=== PATIENT | male | born 1935 | race Caucasian/White ===

== ENCOUNTER 2016-09-24 09:17 | Inpatient (IN) | payer MEDICARE ==
[~2016-09-24 09:17] MED LIST: ALBUTEROL2.5 MG/3 M INH; COUMADIN1 M1 PO; COUMADIN2 M1 PO; FLOMAX0.4 M1 PO; LIPITOR20 M1 PO; LOSARTAN-HCTZ1 EAC5 PO; LOVENOX80 MG/0.8; MULTIVITAMIN1 TAB; OMEGA 31 CAP; PRILOSEC20 MG; PROPOXY-N-APAP1 TAB; PROVENTIL HFA6.7 G1 INH; SPIRIVA18 MC1 INH; SYMBICORT 160-1 PUFF INH; TENORMIN25 M1 PO
[2016-09-24] MEDS ORDERED: SYNTHROID50 MC1 PO (10:46)
[2016-09-24] MEDS ORDERED: LASIX40 M1 PO (10:47)
[2016-09-24] MEDS ORDERED: LOPERAMIDE1 MG/5 M3 PO (10:48)
[2016-09-24] MEDS ORDERED: CALCIUM CITRAT1 EA25 PO (10:51)
[2016-09-24] MEDS ORDERED: PREDNISONE10 M1 PO (10:52)
[2016-09-24 11:56] LABS: BASO % 0.1 % (0-2); EOS % 0.3 % (0-7); HCT-HEMATOCRIT 25.2 % (36.0-53.5); IMMATURE GRANULOCYTES ABSOLUTE 0.04 tho/cmm (0-0.03); IMMATURE GRANULOCYTES PERCENT 0.4 % (0-0.3); LYMPH % 1.8 % (20-45); LYMPH ABSOLUTE COUNT 0.2 tho/cmm (0.8-4.5); MCH (MEAN CORPUSCULAR HGB) 29.2 pg (28.0-32.0); MCHC MEAN CORPUSCULAR HGB CONC 31.7 % (32.0-36.0); MEAN PLATELET VOLUME 10.5 cmc (9.4-12.4); MONO % 2.5 % (0-12); MONOCYTE ABSOLUTE COUNT 0.2 tho/cmm (0.0-1.2); NEUTROPHIL ABSOLUTE COUNT 9.1 tho/cmm (1.6-8.0); NEUTROPHIL-AUTOMATED 9.1 tho/cmm (1.6-8.0); NEUTROPHILS % 94.9 % (40-80); PLATELET COUNT 158 tho/cmm (150-450); RED BLOOD COUNT 2.74 mil/cmm (4.40-5.70); RED CELL DISTRIBUTION WIDTH 14.8 % (12.4-16.4); WHITE BLOOD COUNT 9.6 tho/cmm (4.0-10.0)
[2016-09-24 12:00] LABS: PROTHROMBIN TIME 11.6 SECONDS (9.0-13.6)
[2016-09-24 12:06] LABS: ANION GAP 18 mmol/L (0-20); BLOOD UREA NITROGEN 119 mg/dl (6-24); CALCIUM 7.2 mg/dl (8.5-10.5); CARBON DIOXIDE-VENOUS 25 mmol/L (22-32); CHLORIDE 109 mmol/l (96-110); CREATININE 5.14 mg/dl (0.60-1.30); GLUCOSE 110 mg/dL (70-110); POTASSIUM 3.5 mmol/L (3.7-5.1); SODIUM 148 mmol/L (135-145); eGFR VALUE FOR BLACK 11 mL/Min
[2016-09-24 17:25] LABS: TSH-THYROID STIMULATING HORM. 2.06 uIU/ml (0.40-3.80)
[2016-09-25 05:37] LABS: BASO % 0.1 % (0-2); EOS % 1.5 % (0-7); EOSINOPHIL ABSOLUTE COUNT 0.1 tho/cmm (0.0-0.7); HGB-HEMOGLOBIN 7.2 gm/dl (13.5-17.0); IMMATURE GRANULOCYTES ABSOLUTE 0.05 tho/cmm (0-0.03); IMMATURE GRANULOCYTES PERCENT 0.6 % (0-0.3); LYMPH % 4.4 % (20-45); LYMPH ABSOLUTE COUNT 0.4 tho/cmm (0.8-4.5); MCH (MEAN CORPUSCULAR HGB) 29.3 pg (28.0-32.0); MCHC MEAN CORPUSCULAR HGB CONC 31.4 % (32.0-36.0); MCV (MEAN CELL VOLUME) 93.1 fl (82.0-96.0); MEAN PLATELET VOLUME 9.6 cmc (9.4-12.4); MONO % 7.9 % (0-12); MONOCYTE ABSOLUTE COUNT 0.7 tho/cmm (0.0-1.2); NEUTROPHIL ABSOLUTE COUNT 7.8 tho/cmm (1.6-8.0); NEUTROPHIL-AUTOMATED 7.8 tho/cmm (1.6-8.0); NEUTROPHILS % 85.5 % (40-80); PLATELET COUNT 136 tho/cmm (150-450); RED BLOOD COUNT 2.46 mil/cmm (4.40-5.70); RED CELL DISTRIBUTION WIDTH 14.8 % (12.4-16.4); WHITE BLOOD COUNT 9.1 tho/cmm (4.0-10.0)
[2016-09-25 05:46] LABS: HCT-HEMATOCRIT 22.9 % (36.0-53.5)
[2016-09-25 05:49] LABS: ALBUMIN 2.5 g/dl (3.5-5.0); ANION GAP 16 mmol/L (0-20); BLOOD UREA NITROGEN 120 mg/dl (6-24); CALCIUM 6.8 mg/dl (8.5-10.5); CARBON DIOXIDE-VENOUS 27 mmol/L (22-32); CHLORIDE 115 mmol/l (96-110); CREATININE 4.79 mg/dl (0.60-1.30); GLUCOSE 86 mg/dL (70-110); PHOSPHOROUS 5.5 mg/dl (2.5-4.9); POTASSIUM 3.5 mmol/L (3.7-5.1); SODIUM 154 mmol/L (135-145); eGFR VALUE FOR BLACK 12 mL/Min
[2016-09-25] MEDS ORDERED: OMEPRAZOLE20 M3 PO (14:06)
[2016-09-25] MEDS ORDERED: LOMOTIL 2.5-0.1 EACH PO (14:16)
[2016-09-25] MEDS ORDERED: IPRAT-ALBUT 0.5-3 ML INH (14:17)
[2016-09-25] MEDS ORDERED: LUPRON DEPOT3.75 MG (14:18)
--- NOTE | 2016-09-25 20:59 | NUR ---
VIRTUAL CARE NOTE: ASSESSMENT DEFERRED. PT. SLEEPING.
[2016-09-26 06:46] LABS: CALCIUM 7.2 mg/dl (8.5-10.5); CARBON DIOXIDE-VENOUS 26 mmol/L (22-32); CHLORIDE 110 mmol/l (96-110); GLUCOSE 84 mg/dL (70-110); MAGNESIUM 1.5 mg/dl (1.8-2.6); PHOSPHOROUS 3.4 mg/dl (2.5-4.9); POTASSIUM 3.4 mmol/L (3.7-5.1); eGFR VALUE FOR BLACK 20 mL/Min
[2016-09-26 07:09] LABS: ANION GAP 13 mmol/L (0-20); BLOOD UREA NITROGEN 55 mg/dl (6-24); CREATININE 3.16 mg/dl (0.60-1.30); SODIUM 146 mmol/L (135-145)
--- NOTE | 2016-09-26 07:30 | NUR ---
VIRTUAL CARE NOTE: ROUND AT BEDSIDE, HELPING FLOOR NURSE WITH GREEN SHEET AND CONSENT SIGN FOR SCOPES TODAY. PRE-PROCEDURE INFORMATION GIVEN TO PT AND FAMILY. PT AND FAMILY DENIES CONCERNS OR QUESTONS.
[2016-09-26 17:01] LABS: HCT-HEMATOCRIT 28.6 % (36.0-53.5); MCV (MEAN CELL VOLUME) 93.2 fl (82.0-96.0); RED CELL DISTRIBUTION WIDTH 15.5 % (12.4-16.4)
[2016-09-27 05:32] LABS: BASO % 0.1 % (0-2); EOS % 0.4 % (0-7); EOSINOPHIL ABSOLUTE COUNT 0.1 tho/cmm (0.0-0.7); HGB-HEMOGLOBIN 7.1 gm/dl (13.5-17.0); IMMATURE GRANULOCYTES ABSOLUTE 0.06 tho/cmm (0-0.03); IMMATURE GRANULOCYTES PERCENT 0.4 % (0-0.3); LYMPH % 3.4 % (20-45); LYMPH ABSOLUTE COUNT 0.5 tho/cmm (0.8-4.5); MCH (MEAN CORPUSCULAR HGB) 29.8 pg (28.0-32.0); MCV (MEAN CELL VOLUME) 92.9 fl (82.0-96.0); MEAN PLATELET VOLUME 9.9 cmc (9.4-12.4); MONO % 4.5 % (0-12); MONOCYTE ABSOLUTE COUNT 0.6 tho/cmm (0.0-1.2); NEUTROPHIL ABSOLUTE COUNT 12.9 tho/cmm (1.6-8.0); NEUTROPHIL-AUTOMATED 12.9 tho/cmm (1.6-8.0); NEUTROPHILS % 91.2 % (40-80); PLATELET COUNT 128 tho/cmm (150-450); RED BLOOD COUNT 2.38 mil/cmm (4.40-5.70); RED CELL DISTRIBUTION WIDTH 15.6 % (12.4-16.4)
[2016-09-27 05:35] LABS: HCT-HEMATOCRIT 22.1 % (36.0-53.5); MCHC MEAN CORPUSCULAR HGB CONC 32.1 % (32.0-36.0); WHITE BLOOD COUNT 14.1 tho/cmm (4.0-10.0)
[2016-09-27 05:43] LABS: ALBUMIN 2.4 g/dl (3.5-5.0); ANION GAP 15 mmol/L (0-20); BLOOD UREA NITROGEN 29 mg/dl (6-24); CALCIUM 7.1 mg/dl (8.5-10.5); CARBON DIOXIDE-VENOUS 25 mmol/L (22-32); CHLORIDE 105 mmol/l (96-110); CREATININE 3.08 mg/dl (0.60-1.30); GLUCOSE 103 mg/dL (70-110); PHOSPHOROUS 3.9 mg/dl (2.5-4.9); POTASSIUM 3.8 mmol/L (3.7-5.1); SODIUM 141 mmol/L (135-145); eGFR VALUE FOR BLACK 21 mL/Min
--- NOTE | 2016-09-27 20:17 | NUR ---
VN/LEADER ROUNDING-VISITED WITH PATIENT HE LAY IN BED COMFORTABLE WITH MIN DISCOMFORT AND SAID A TYLENOL MIGHT HELP. I AM PAGING THE NURSE. I EXPLAINED TO PATIENT THAT HE IS GOING TO HAVE A LACTOSE TOLERANCE TEST AND THAT HE CANNOT HAVE ANYTHING TO EAT OR DRINK AFTER MIDNIGHT. HE VERBALIZED UNDERSTANDING. PATIENT HAD NO CONCERNS AND SAID EVERYTHING IS GOOD FAR THE LEADER ROUNDING.
[2016-09-28 05:11] LABS: BASO % 0.2 % (0-2); EOS % 1.2 % (0-7); EOSINOPHIL ABSOLUTE COUNT 0.2 tho/cmm (0.0-0.7); HGB-HEMOGLOBIN 6.5 gm/dl (13.5-17.0); LYMPH % 3.7 % (20-45); LYMPH ABSOLUTE COUNT 0.5 tho/cmm (0.8-4.5); MCH (MEAN CORPUSCULAR HGB) 30.4 pg (28.0-32.0); MCV (MEAN CELL VOLUME) 95.8 fl (82.0-96.0); MEAN PLATELET VOLUME 11.4 cmc (9.4-12.4); MONO % 6.3 % (0-12); MONOCYTE ABSOLUTE COUNT 0.8 tho/cmm (0.0-1.2); NEUTROPHIL ABSOLUTE COUNT 11.5 tho/cmm (1.6-8.0); NEUTROPHIL-AUTOMATED 11.5 tho/cmm (1.6-8.0); NEUTROPHILS % 88.6 % (40-80); PLATELET COUNT 78 tho/cmm (150-450); RED BLOOD COUNT 2.14 mil/cmm (4.40-5.70); RED CELL DISTRIBUTION WIDTH 15.4 % (12.4-16.4)
[2016-09-28 05:47] LABS: BLOOD UREA NITROGEN 28 mg/dl (6-24); CALCIUM 6.7 mg/dl (8.5-10.5); CARBON DIOXIDE-VENOUS 21 mmol/L (22-32); CHLORIDE 106 mmol/l (96-110); CREATININE 2.81 mg/dl (0.60-1.30); GLUCOSE 130 mg/dL (70-110); SODIUM 138 mmol/L (135-145); eGFR VALUE FOR BLACK 23 mL/Min
[2016-09-28 05:48] LABS: ANION GAP 15 mmol/L (0-20); MAGNESIUM 1.5 mg/dl (1.8-2.6); POTASSIUM 3.5 mmol/L (3.7-5.1)
[2016-09-28 06:26] LABS: HCT-HEMATOCRIT 20.5 % (36.0-53.5); MCHC MEAN CORPUSCULAR HGB CONC 31.7 % (32.0-36.0)
--- NOTE | 2016-09-28 19:38 | NUR ---
VN/LEADER ROUNDING-PATIENT LAYING IN BED AND FEELING BETTER TODAY. HE GOT SOME BLOOD AND MAG BY IV. DENIES PAIN EXCEPT THE HEMOCATH HURTS SOMETIMES WHEN HE TOUCHES IT AND HE LEFT ARM A LITTLE SORE WHEN I ASKED HIM ABOUT IT. WE ALSO DISCUSSED PLANS FOR HIM TO GET DIALYSIS TOMMORROW AND WILL GET ANOTHER UNIT OF BLOOD. ALSO DISCUSSED THE LACTOSE TEST OUTPT. NO OTHER CONCERNS AT THIS TIME. CHART REVIEWED.
[2016-09-29 05:24] LABS: HGB-HEMOGLOBIN 8.2 gm/dl (13.5-17.0)
[2016-09-29 05:25] LABS: IRON 31 ug/dl (49-181); IRON BINDING CAPACITY 126 ug/dl (250-450)
[2016-09-29 05:30] LABS: ANION GAP 16 mmol/L (0-20); CALCIUM 7.5 mg/dl (8.5-10.5); CARBON DIOXIDE-VENOUS 25 mmol/L (22-32); CHLORIDE 106 mmol/l (96-110); FERRITIN 225 ng/ml (22-388); GLUCOSE 93 mg/dL (70-110); POTASSIUM 3.5 mmol/L (3.7-5.1); SODIUM 143 mmol/L (135-145)
[2016-09-29 05:34] LABS: BLOOD UREA NITROGEN 48 mg/dl (6-24); CREATININE 3.68 mg/dl (0.60-1.30); MAGNESIUM 2.7 mg/dl (1.8-2.6); eGFR VALUE FOR BLACK 17 mL/Min
--- NOTE | 2016-09-29 22:00 | NUR ---
VIRTUAL CARE NOTE: ASSESSMENT DEFERRED. PT. SLEEPING.
--- NOTE | 2016-09-30 21:47 | NUR ---
VIRTUAL CARE NOTE: ASSESSMENT DEFERRED. PT. SLEEPING.
[2016-10-01 05:07] LABS: BASO % 0.2 % (0-2); EOS % 0.7 % (0-7); EOSINOPHIL ABSOLUTE COUNT 0.1 tho/cmm (0.0-0.7); HCT-HEMATOCRIT 27.9 % (36.0-53.5); HGB-HEMOGLOBIN 8.9 gm/dl (13.5-17.0); IMMATURE GRANULOCYTES ABSOLUTE 0.14 tho/cmm (0-0.03); IMMATURE GRANULOCYTES PERCENT 1.2 % (0-0.3); LYMPH % 5.3 % (20-45); LYMPH ABSOLUTE COUNT 0.7 tho/cmm (0.8-4.5); MCH (MEAN CORPUSCULAR HGB) 29.1 pg (28.0-32.0); MCHC MEAN CORPUSCULAR HGB CONC 31.9 % (32.0-36.0); MCV (MEAN CELL VOLUME) 91.2 fl (82.0-96.0); MEAN PLATELET VOLUME 9.6 cmc (9.4-12.4); MONOCYTE ABSOLUTE COUNT 0.6 tho/cmm (0.0-1.2); NEUTROPHIL ABSOLUTE COUNT 10.7 tho/cmm (1.6-8.0); NEUTROPHIL-AUTOMATED 10.7 tho/cmm (1.6-8.0); NEUTROPHILS % 87.6 % (40-80); PLATELET COUNT 137 tho/cmm (150-450); RED BLOOD COUNT 3.06 mil/cmm (4.40-5.70); RED CELL DISTRIBUTION WIDTH 15.4 % (12.4-16.4); WHITE BLOOD COUNT 12.2 tho/cmm (4.0-10.0)
[2016-10-01 05:18] LABS: ALBUMIN 2.1 g/dl (3.5-5.0); ANION GAP 16 mmol/L (0-20); BLOOD UREA NITROGEN 57 mg/dl (6-24); CALCIUM 7.4 mg/dl (8.5-10.5); CARBON DIOXIDE-VENOUS 26 mmol/L (22-32); CHLORIDE 104 mmol/l (96-110); CREATININE 3.35 mg/dl (0.60-1.30); GLUCOSE 93 mg/dL (70-110); PHOSPHOROUS 3.1 mg/dl (2.5-4.9); POTASSIUM 4.2 mmol/L (3.7-5.1); SODIUM 142 mmol/L (135-145); eGFR VALUE FOR BLACK 19 mL/Min
--- NOTE | 2016-10-01 16:09 | NUR ---
VIRTUAL CARE NOTE: CHECKED IN W PT AT THIS TIME. HE IS SITTING UP IN BED. IS REQUESTING SOME ASSISTANCE WITH REWRAPPING THE BANDAGE ON HIS ARM. PAGED NURSING STAFF FOR THEM TO COME HELP PT WHEN THEY CAN. PT IS IN GOOD SPIRITS. STATES HE HAD HD RUN TODAY AND THAT IT WENT WELL. NO DIZZINESS. HAS NO FURTHER NEEDS OR QUESTIONS AT THIS TIME. WILL CONTINUE TO MONITOR. ELECTRONIC CHART REVIEWED.
--- NOTE | 2016-10-03 20:24 | NUR ---
VIRTUAL CARE NOTE: PT IN BED, SLIGHTLY HARD OF HEARING, FAMILY ALSO IN THE ROOM. STATES IS DOING OKAY. O2 ON UNABLE TO VIEW AMOUNT. PT. AND STATES HE'S USUALLY ON 2 1/2 LITERS AT HOME IS ON 2L HERE. THEY ALSO STATE THAT HE'S WALKED TO THE DOORWAY AND BACK. PT. ENCOURAGED WHEN STAFF IS ABLE TO WALK AGAIN TONIGHT WITH HELP ONCE MORE. EDUCATION REVIEWED TO CALL THE STAFF AND WAIT FOR THEIR ARRIVAL TO GET UP SO HE DOESN'T GET INJURED. PT. AND STATE VERBAL UNDERSTANDING. EXPLAINS THEY ARE AWAITING [facility] DIALYSIS TRANSPORT FOR DISCHARGE NEEDS. EXPLANATION GIVEN THAT THIS NURSE WAS GLAD THEY FOUND A PLACE FOR DIALYSIS NOW WE NEED THE NEXT STEP TO [facility] AND OUR STAFF WILL CONTINUE TO WORK WITH THEM. INSTRUCTED TO CALL FOR FURTHER NEEDS. PT. AND VOICE VERBAL UNDERSTANDING.
[2016-10-03 23:11] LABS: PROTHROMBIN TIME 11.1 SECONDS (9.0-13.6)
[2016-10-04 06:23] LABS: BASO % 0.1 % (0-2); EOS % 0.7 % (0-7); EOSINOPHIL ABSOLUTE COUNT 0.1 tho/cmm (0.0-0.7); HCT-HEMATOCRIT 31.4 % (36.0-53.5); HGB-HEMOGLOBIN 9.9 gm/dl (13.5-17.0); IMMATURE GRANULOCYTES ABSOLUTE 0.22 tho/cmm (0-0.03); IMMATURE GRANULOCYTES PERCENT 1.9 % (0-0.3); LYMPH ABSOLUTE COUNT 0.7 tho/cmm (0.8-4.5); MCH (MEAN CORPUSCULAR HGB) 29.8 pg (28.0-32.0); MCHC MEAN CORPUSCULAR HGB CONC 31.5 % (32.0-36.0); MCV (MEAN CELL VOLUME) 94.6 fl (82.0-96.0); MEAN PLATELET VOLUME 10.3 cmc (9.4-12.4); MONO % 7.3 % (0-12); MONOCYTE ABSOLUTE COUNT 0.9 tho/cmm (0.0-1.2); PLATELET COUNT 162 tho/cmm (150-450); RED BLOOD COUNT 3.32 mil/cmm (4.40-5.70); RED CELL DISTRIBUTION WIDTH 16.1 % (12.4-16.4); WHITE BLOOD COUNT 11.8 tho/cmm (4.0-10.0)
[2016-10-04 06:28] LABS: PROTHROMBIN TIME 11.1 SECONDS (9.0-13.6)
[2016-10-04 06:36] LABS: ANION GAP 14 mmol/L (0-20); BLOOD UREA NITROGEN 56 mg/dl (6-24); CALCIUM 7.9 mg/dl (8.5-10.5); CARBON DIOXIDE-VENOUS 27 mmol/L (22-32); CHLORIDE 107 mmol/l (96-110); CREATININE 2.44 mg/dl (0.60-1.30); GLUCOSE 94 mg/dL (70-110); MAGNESIUM 1.8 mg/dl (1.8-2.6); PHOSPHOROUS 2.9 mg/dl (2.5-4.9); POTASSIUM 4.6 mmol/L (3.7-5.1); SODIUM 143 mmol/L (135-145); eGFR VALUE FOR BLACK 28 mL/Min
--- NOTE | 2016-10-04 20:29 | NUR ---
VIRTUAL CARE NOTE: REVIEWED PLAN OF CARE WITH PT. PT STATES DOING WELL. DIALYSIS MAKES HIM TIRED BUT STATES [facility] DECREASED IT FROM 4 HOURS TO 3 AND THAT HAS HELPED. HE IS READY TO GO TO THE FACILITY TOMORROW AND CONTINUE WITH DIALYSIS PLANNED. DENIES ANY QUESTIONS OR CONCERNS AT THIS TIME. ENCOURAGED TO NOTIFY STAFF WITH NEEDS, ENCOURAGED FALL PRECAUTIONS. PT V/U. PHONE RANG AND PT COULD NOT REACH IT, ASKED STAFF TO COME IN AND MOVE IT CLOSER. WILL CONTINUE WITH CHART REVIEW.
--- NOTE | 2016-10-05 10:19 | NUR ---
VIRTUAL CARE NOTE: PT RESTING ON BED, AND DAUGHTER AT BEDISDE. DISCHARGE PLAN DISCUSSED, PT AND FAMILY AGREE TO DISMISS TO [facility] TODAY. PER [facility] WILL TAKE PT AT 2PM. FAMILY AND PT WERE INFORMED OF THE TIME.
== END 2016-10-05 13:50 | DRG 673 ==
LOC: SHSA 09:17 → 5WD 15:29
PROVIDERS: Internal Medicine; Internal Medicine Nephrology; Radiology Diagnostic Radiology; Specialist; ADMIT Internal Medicine Nephrology
PROC: 0JH63XZ Insertion of Tunneled Vascular Access Device into Chest Subcutaneous Tissue and Fascia, Percutaneous Approach (ICD-10-PCS; principal; 2016-09-24)
PROC: 02H633Z Insertion of Infusion Device into Right Atrium, Percutaneous Approach (ICD-10-PCS; 2016-09-24)
PROC: B214YZZ Fluoroscopy of Right Heart using Other Contrast (ICD-10-PCS; 2016-09-24)
PROC: 5A1D60Z (ICD-10-PCS; 2016-09-25)
PROC: 0DB98ZX Excision of Duodenum, Via Natural or Artificial Opening Endoscopic, Diagnostic (ICD-10-PCS; 2016-09-26)
PROC: 0DBE8ZX Excision of Large Intestine, Via Natural or Artificial Opening Endoscopic, Diagnostic (ICD-10-PCS; 2016-09-26)
PROC: 0DBK8ZZ Excision of Ascending Colon, Via Natural or Artificial Opening Endoscopic (ICD-10-PCS; 2016-09-26)
PROC: 30233N1 Transfusion of Nonautologous Red Blood Cells into Peripheral Vein, Percutaneous Approach (ICD-10-PCS; 2016-09-28)
DX: I12.0 Hypertensive chronic kidney disease with stage 5 chronic kidney disease or end stage renal disease (principal); E43 Unspecified severe protein-calorie malnutrition; N17.9 Acute kidney failure, unspecified; E87.0 Hyperosmolality and hypernatremia; N18.6 End stage renal disease; D69.6 Thrombocytopenia, unspecified; I95.9 Hypotension, unspecified; Z68.1 Body mass index [BMI] 19.9 or less, adult; Z99.81 Dependence on supplemental oxygen; J44.9 Chronic obstructive pulmonary disease, unspecified; D63.1 Anemia in chronic kidney disease; E03.9 Hypothyroidism, unspecified; K52.9 Noninfective gastroenteritis and colitis, unspecified; D12.2 Benign neoplasm of ascending colon; K57.30 Diverticulosis of large intestine without perforation or abscess without bleeding; R15.2 Fecal urgency; Z85.828 Personal history of other malignant neoplasm of skin; Z85.46 Personal history of malignant neoplasm of prostate; Z92.3 Personal history of irradiation; Z88.0 Allergy status to penicillin; Z87.891 Personal history of nicotine dependence; Z96.641 Presence of right artificial hip joint; Z99.2 Dependence on renal dialysis; E87.6 Hypokalemia; E83.42 Hypomagnesemia; Z86.718 Personal history of other venous thrombosis and embolism; Z79.01 Long term (current) use of anticoagulants
CPT/HCPCS: C1750; C1769; J0885; J1644; J1940; J2150; J2250; J3010; J3475; J7512; P9016; P9045; P9047